=== PATIENT | male | born 1975 | race Caucasian/White ===

== ENCOUNTER 2021-08-15 07:06 | Day surgery (SDC) | payer OTHER ==
[~2021-08-15] VITALS: Ht 172.7 cm; Wt 89.0 kg
[~2021-08-15 07:06] MED LIST: ALBU2.5V8 INH; ASPI-630 PO; ATOR20TA58 PO; BUPIVACAINE-EPI 0.5% 30 ML VIAL KIT. ONE; CETI10TA74 PO; DICL75TA PO; ERGO2000 PO; HYDROmorphone 2 MG/ML VIAL IVP PRN; IV RINGERS,LACTATED 1000ML 1,000 ML IV SCH; MONT10TA49 PO; PROCHLORPERAZINE 10 MG/2 ML VIAL. IVP PRN; fentaNYL PF VIAL 100 MCG/2 ML VIAL IVP PRN
[2021-08-15] MEDS ORDERED: PROPOFOL 10 MG/ML (20ML) VIAL. IV ONE ×3 (07:13→07:22)
[2021-08-15] MEDS ORDERED: MIDAZOLAM HCL/PF 2 MG/2 ML VIAL. ONE ×3 (07:14→08:02)
[2021-08-15] MEDS ORDERED: LIDOCAINE 1% PF 5 ML VIAL. ONE (07:16)
[2021-08-15] MEDS ORDERED: ROCURONIUM 50 MG/5 ML VIAL. ONE (07:17)
[2021-08-15] MEDS ORDERED: NEOSTIGMINE METHYLSULFATE 5 MG/5 ML SYRINGE. ONE ×2 (07:18→10:14)
[2021-08-15] MEDS ORDERED: GLYCOPYRROLATE 1 MG/5 ML VIAL. ONE ×2 (07:18→10:14)
[2021-08-15] MEDS ORDERED: LIDOCAINE 2% PF 5 ML VIAL. ONE (07:21)
[2021-08-15] MEDS ORDERED: fentaNYL PF VIAL 100 MCG/2 ML VIAL ONE ×2 (07:21→10:56)
[2021-08-15 07:34] VITALS: BP 142/95
[2021-08-15] MEDS ORDERED: ONDANSETRON PF 4 MG/2 ML VIAL. ONE ×2 (07:35→07:36)
[2021-08-15] MEDS ORDERED: DEXAMETHASONE SOD PHOS 4 MG/ML VIAL ONE (07:36)
[2021-08-15] MEDS ORDERED: SEVOFLURANE 61 TO 120 MINUTES. IH ONE (09:53)
[2021-08-15] MEDS ORDERED: OXYC-325 PO (10:47)
--- NOTE | 2021-08-15 10:48 | DISCH ---
DISCHARGE INSTRUCTIONS Condition on Discharge Condition on Discharge: Stable Activity After Discharge Activity Instructions for Disc: Other, see below (no lifting over 20 lbs X 4 weeks, no driving while taking pain meds) Diet after Discharge Diet after Discharge: Regular Wound Incision Care Wound/Incision Care: Other, see below (keep dressing clean and dry X 72 hours, may then remove and shower) Follow-Up Follow up with: Dr Gibson in 2 weeks in office call for appt [phone] SHAMEKA GIBSON MD Aug 15, 2021 10:48
--- NOTE | 2021-08-15 10:50 | PDOC4 ---
Operative Note Operative Note Operative Note: Preoperative Diagnosis: Umbilical hernia Postoperative Diagnosis: Same Procedure: Umbilical hernia repair with mesh Surgeon: Evaristo Manager University: Jose Arevalo MS4 Anesthesia: General EBL: 10 mL Specimen: None Drains: None Complications: None Indication: The patient is a 46-year-old male who is referred with umbilical hernia. He was offered surgical repair. The risks of surgery were discussed which include bleeding, infection, recurrence, pain, anesthetic risk, potential need for additional surgery procedure. He understands and would like to proceed. Description: The patient was taken to the operating room and placed supine in the operating table. General anesthesia was performed. The abdomen was prepped with ChloraPrep and draped with sterile towels, sheets, and an Ioban. A curved infraumbilical incision was made in the skin with a scalpel. Cautery dissection was carried down to the fascia. The umbilical tissue was elevated off the fascia exposing the defect. A preperitoneal plane was developed circumferentially with blunt dissection. A medium sized Ventralex ST mesh was then placed in this plane. The mesh was sutured into position with 0 Prolene at the 12, 3, 6, 9:00 positions in a horizontal mattress fashion. The umbilicus was secured back to the fascia with 0 Vicryl. The subcutaneous tissue was closed with 3-0 Vicryl. The skin was approximated with 4-0 Monocryl and infiltrated with half percent Marcaine with epinephrine. Steri-Strips and a sterile dressing were applied. The patient tolerated the procedure well and was sent to the recovery room in stable condition. At the end of the case all counts were correct. SHAMEKA GIBSON MD Aug 15, 2021 10:50
[2021-08-15] MEDS ORDERED: MORPHINE SULFATE 2 MG/ML INJ. ONE (10:56)
[2021-08-15] MEDS: fentaNYL PF VIAL 100 MCG/2 ML VIAL IVP PRN ×2 (10:59→11:07)
[2021-08-15] MEDS: MORPHINE SULFATE 2 MG/ML INJ. IVP PRN ×2 (11:00→11:14)
[2021-08-15] MEDS ORDERED: oxyCODONE/APAP 5/325 1 TAB TABLET PO ONE ×2 (11:15)
[2021-08-15 11:30] VITALS: BP 132/83
== END 2021-08-15 12:00 | disposition home or self-care (01) ==
LOC: SURG 07:06
PROVIDERS: ATTEND Surgery
DX: K42.9 Umbilical hernia without obstruction or gangrene (principal); E78.00 Pure hypercholesterolemia, unspecified; Z79.82 Long term (current) use of aspirin; Z79.899 Other long term (current) drug therapy; Z98.890 Other specified postprocedural states
CPT/HCPCS: 49585; A4209; A4364; A4930; C1781; J0690; J1100; J2250; J2270; J2405; J2704; J2710; J3010; J3490; A4452